=== PATIENT | female | born 1970 | race Asian ===

== ENCOUNTER → 2024-03-03 11:47 | Outpatient (REF) | payer BC, SELFPAY | LOC: WDC 11:47 | PROVIDERS: ATTENDING PHYSICIAN Family Medicine | DX: Z12.31 Encounter for screening mammogram for malignant neoplasm of breast (principal) | CPT/HCPCS: 77063; 77067 ==

== ENCOUNTER → 2024-03-12 14:49 | Outpatient (REF) | payer BC, SELFPAY | LOC: RAD 14:49 | PROVIDERS: ATTENDING PHYSICIAN Family Medicine | DX: M25.571 Pain in right ankle and joints of right foot (principal) | CPT/HCPCS: 73610; 73630 ==

== ENCOUNTER → 2025-07-27 14:00 | Outpatient (REF) | payer OTHER, SELFPAY | LOC: HWWDC 14:00 | PROVIDERS: ATTENDING PHYSICIAN Family Medicine | DX: Z12.31 Encounter for screening mammogram for malignant neoplasm of breast (principal) | CPT/HCPCS: 77063; 77067 ==

== ENCOUNTER → 2025-08-08 09:40 | Outpatient (REF) | payer OTHER, SELFPAY | LOC: RAD 09:40 | PROVIDERS: ATTENDING PHYSICIAN Urology; FAMILY PHYSICIAN Family Medicine | DX: N39.0 Urinary tract infection, site not specified (principal); N95.8 Other specified menopausal and perimenopausal disorders; N39.41 Urge incontinence | CPT/HCPCS: 76770; 76830; 76856 ==